=== PATIENT | female | born 1995 | race American Indian/Alaskan Native ===

== ENCOUNTER 2017-02-17 00:11 | Emergency (ER) | payer SELFPAY ==
[2017-02-17 01:05] VITALS: BP 153/101
[2017-02-17] MEDS ORDERED: MOTRIN PO ONE (04:46)
[2017-02-17] MEDS ORDERED: BOOSTRIX IM ONE (04:46)
[2017-02-17] MEDS ORDERED: NORCO 5/325 PO ONE (04:46)
[2017-02-17] MEDS ORDERED: XYLOCAINE TOPICAL 2% TP ONE (04:46)
[2017-02-17] MEDS ORDERED: ZOFRAN ODT PO ONE (04:47)
[2017-02-17] MEDS ORDERED: XYLOCAINE TOPICAL 2% ONE (05:04)
--- NOTE | 2017-02-17 05:06 | Emergency Department Report ---
ED Lower Extremity HPI - General Chief Complaint: Extremity Injury, Lower Stated Complaint: LEFT FOOT TOE NAIL OFF Time Seen by Provider: 02/17/17 04:37 Source: patient Mode of arrival: Ambulatory Limitations: No Limitations - History of Present Illness Initial Comments: 22-year-old female past medical history none presents with complaint of injuring her left great toe toenail. Patient states that while climbing into bed she accidentally grazed the blanket and her toenail detached and flipped upward. Patient experienced immediate pain, denies any other injuries. Left great toe toenail visibly detached from nailbed and pointed upward. Small attachment at top of the nail fold. Complaint: foot injury Onset/Timin -: hour(s) Injury: Toes: Left Type of Injury: other (grazed the bedding) Place: home Severity: moderate Severity scale (0 -10): 4 Improves With: nothing Worsens With: movement, palpation Associated Symptoms: ambulatory - Related Data Home Medications Medication Instructions Recorded Confirmed Last Taken Enoxaparin [Lovenox] 70 mg SUB-Q Q12HR 11/21/14 02/24/15 11/21/14 06:00 1 injection Vit#96/Ferrous Fum/FA 1 tab PO DAILY 11/21/14 02/24/15 11/21/14 06:00 [ Tablet] Previous Rx's Medication Instructions Recorded Last Taken Type NIFEdipine*For Tocolysis only* 10 mg PO Q6HR #30 capsule 11/22/14 Unknown Rx [PROCARDIA] Acetaminophen [Acetaminophen TAB] 650 mg PO Q4H PRN #30 tablet 02/25/15 Unknown Rx Ferrous Sulfate [Feosol 325 MG tab] 325 mg PO BID #60 tablet 02/25/15 Unknown Rx HYDROcodone/APAP 5-325 [[place] 2 each PO Q6H PRN #20 tablet 02/25/15 Unknown Rx 5-325 mg TAB] Vit-Fe Fumar-FA [ 1 each PO QDAY #30 tablet 02/25/15 Unknown Rx Vitamin] Acetaminophen/Codeine [Tylenol 1 tab PO Q6H PRN #5 tab 02/17/17 Unknown Rx /Codeine # 3 tab] Ibuprofen [Motrin] 800 mg PO Q8HR PRN #25 tablet 02/17/17 Unknown Rx Sulfamethoxazole/Trimethoprim 1 each PO BID #14 tablet 02/17/17 Unknown Rx [Bactrim DS TAB] Allergies Allergy/AdvReac Type Severity Reaction Status Date / Time No Known Allergies Allergy Verified 02/22/15 19:19 ED Review of Systems ROS: Stated complaint: LEFT FOOT TOE NAIL OFF Other details as noted in HPI Constitutional: denies: chills, fever Eyes: denies: eye pain, eye discharge, vision change ENT: denies: ear pain, throat pain Respiratory: denies: cough, shortness of breath, wheezing Cardiovascular: denies: chest pain, palpitations Endocrine: no symptoms reported Gastrointestinal: denies: abdominal pain, nausea, diarrhea Genitourinary: denies: urgency, dysuria, discharge Musculoskeletal: denies: back pain, joint swelling, arthralgia Skin: denies: rash, lesions Neurological: denies: headache, weakness, paresthesias Psychiatric: denies: anxiety, depression Hematological/Lymphatic: denies: easy bleeding, easy bruising ED Past Medical Hx - Past Medical History Hx Hypertension: No Hx Congestive Heart Failure: No Hx Diabetes: No Hx Deep Vein Thrombosis: Yes (current) Hx Pulmonary Embolism: Yes Hx Renal Disease: No Hx Sickle Cell Disease: No Hx Seizures: No Hx Asthma: No Hx COPD: No Hx HIV: No - Social History Smoking Status: Never Smoker - Medications Home Medications: Home Medications Medication Instructions Recorded Confirmed Last Taken Type Enoxaparin [Lovenox] 70 mg SUB-Q Q12HR 11/21/14 02/24/15 11/21/14 06:00 History 1 injection Vit#96/Ferrous Fum/FA 1 tab PO DAILY 11/21/14 02/24/15 11/21/14 06:00 History [ Tablet] NIFEdipine*For Tocolysis only* 10 mg PO Q6HR #30 capsule 11/22/14 02/24/15 Unknown Rx [PROCARDIA] Acetaminophen [Acetaminophen TAB] 650 mg PO Q4H PRN #30 tablet 02/25/15 Unknown Rx Ferrous Sulfate [Feosol 325 MG tab] 325 mg PO BID #60 tablet 02/25/15 Unknown Rx HYDROcodone/APAP 5-325 [[place] 2 each PO Q6H PRN #20 tablet 02/25/15 Unknown Rx 5-325 mg TAB] Vit-Fe Fumar-FA [ 1 each PO QDAY #30 tablet 02/25/15 Unknown Rx Vitamin] Acetaminophen/Codeine [Tylenol 1 tab PO Q6H PRN #5 tab 02/17/17 Unknown Rx /Codeine # 3 tab] Ibuprofen [Motrin] 800 mg PO Q8HR PRN #25 tablet 02/17/17 Unknown Rx Sulfamethoxazole/Trimethoprim 1 each PO BID #14 tablet 02/17/17 Unknown Rx [Bactrim DS TAB] ED Physical Exam - General Limitations: No Limitations General appearance: alert, in no apparent distress - Head Head exam: Present: atraumatic, normocephalic - Eye Eye exam: Present: normal appearance, PERRL, EOMI - ENT ENT exam: Present: mucous membranes moist - Neck Neck exam: Present: normal inspection - Respiratory Respiratory exam: Present: normal lung sounds bilaterally. Absent: respiratory distress - Cardiovascular Cardiovascular Exam: Present: regular rate, normal rhythm. Absent: systolic murmur, diastolic murmur, rubs, gallop - GI/Abdominal GI/Abdominal exam: Present: soft, normal bowel sounds - Extremities Exam Extremities exam: Present: normal inspection - Expanded Lower Extremity Exam Left Ankle exam: Present: normal inspection, full ROM Foot/Toe exam: Present: nail avulsion (visible lift/detachment of left great toenail, still partially attached at top of nail fold. Nail bed appears intact on inspection) 1 - Site of injury is here - Back Exam Back exam: Present: normal inspection - Neurological Exam Neurological exam: Present: alert, oriented X3 - Psychiatric Psychiatric exam: Present: normal affect, normal mood - Skin Skin exam: Present: warm, dry, intact, normal color. Absent: rash ED Course Vital Signs 02/17/17 02/17/17 01:02 05:15 Temperature 98.0 F Pulse Rate 80 Respiratory 17 18 Rate Blood Pressure 153/101 O2 Sat by Pulse 99 Oximetry - Laceration /Wound Repair Left Distal Toe Wound Location: lower extremity (left great toenail) Wound's Depth, Shape: nail-avulsed Wound Explored: clean Irrigated w/ Saline (ccs): 1,000 Betadine Prep?: Yes Anesthesia: 1% Lidocaine Volume Anesthetic (ccs): 3 Wound Debrided: moderate (I excised as much of a protruding nail as possible, patient did not tolerate pain well despite use of multiple forms of local anesthesia) Sterile Dressing Applied?: Yes (Xeroform gauze placed over nail bed with dry gauze wrap and a gauze finger ) ED Lower Extremity MDM - Medical Decision Making A/P: Left great toenail avulsion 1-nail bed appeared intact on exam, I removed protruding aspect of nail 2-empiric course of antibiotics as entire nail bed is exposed. I irrigated the wound with mix of water and iodine 3-Xeroform gauze placed him, I educated the patient on acute wound care 4-emphasized to the patient the importance of follow-up with podiatry, patient stated that she would make an appointment Critical care attestation.: If time is entered above; I have spent that time in minutes in the direct care of this critically ill patient, excluding procedure time. ED Disposition Clinical Impression: Injury of toenail of left foot Qualifiers: Encounter type: initial encounter Qualified Code(s): S99.922A - Unspecified injury of left foot, initial encounter Disposition: TO HOME OR SELFCARE Is pt being admited?: No Does the pt Need Aspirin: No Condition: Stable Instructions: Subungual Hematoma (ED), Toenail/Fingernail Removal (ED), Acute Wound Care (ED) Prescriptions: Acetaminophen/Codeine [Tylenol /Codeine # 3 tab] 1 tab PO Q6H PRN #5 tab PRN Reason: Pain Ibuprofen [Motrin] 800 mg PO Q8HR PRN #25 tablet PRN Reason: Pain Sulfamethoxazole/Trimethoprim [Bactrim DS TAB] 1 each PO BID #14 tablet Referrals: SANGEETA SORIANO DPM [Staff Physician] - 3-5 Days Forms: Accompanied Note, Work/School Release Form(ED) Time of Disposition: 07:03
== END 2017-02-17 07:10 | disposition home or self-care (01) ==
LOC: ED 00:11
DX: S91.202A Unspecified open wound of left great toe with damage to nail, initial encounter (principal); X58.XXXA Exposure to other specified factors, initial encounter; Y93.89 Activity, other specified; Y92.89 Other specified places as the place of occurrence of the external cause; Y99.8 Other external cause status
CPT/HCPCS: 90471; 90715; Q0162

== ENCOUNTER 2017-08-14 11:36 | Emergency (ER) | payer MEDICAID ==
[2017-08-14 12:08] VITALS: BP 120/74
[2017-08-14] MEDS ORDERED: ASPIRIN PO ONE (12:08)
[2017-08-14] MEDS ORDERED: ASPIRIN ONE (12:10)
== END 2017-08-14 23:39 | disposition left against medical advice (07) ==
LOC: ED 11:36
DX: R07.9 Chest pain, unspecified (principal); Z53.21 Procedure and treatment not carried out due to patient leaving prior to being seen by health care provider
CPT/HCPCS: 93005; 93010

== ENCOUNTER 2018-04-01 09:53 | Emergency (ER) | payer SELFPAY ==
[2018-04-01] MEDS ORDERED: BENTYL IM ONE (11:35)
[2018-04-01] MEDS ORDERED: ZOFRAN ODT PO ONE (11:35)
--- NOTE | 2018-04-01 11:44 | Emergency Department Report ---
ED General Adult HPI - General Chief complaint: Abdominal Pain Stated complaint: PINK EYE/NAUSEA Time Seen by Provider: 04/01/18 11:21 Source: patient Mode of arrival: Ambulatory Limitations: No Limitations - History of Present Illness Initial comments: Patient is 23-year-old black female who is presenting with 2 medical problems. Medical problem #1 is that the patient has some irritation to the right eye for the past day. Patient does wear contact lenses. Patient had some discharged to the this morning. Patient tried using some old eyedrops that she had has not had any improvement. Patient also is complaining of some left lower quadrant discomfort with nausea vomiting and diarrhea. Patient states she was holding a baby several days ago had some loose stools. Patient states that she believes she test stool but did not wash her hands. Patient denies any fevers chills at this time. Patient states there is crampy abdominal discomfort as a 7 out of 10 in severity. - Related Data Home Medications Medication Instructions Recorded Confirmed Last Taken Enoxaparin [Lovenox] 70 mg SUB-Q Q12HR 11/21/14 02/24/15 11/21/14 06:00 1 injection Vits96/Iron Fum/Folic 1 tab PO DAILY 11/21/14 02/24/15 11/21/14 06:00 [ Tablet] Previous Rx's Medication Instructions Recorded Last Taken Type NIFEdipine*For Tocolysis only* 10 mg PO Q6HR #30 capsule 11/22/14 Unknown Rx [PROCARDIA] Acetaminophen [Acetaminophen TAB] 650 mg PO Q4H PRN #30 tablet 02/25/15 Unknown Rx Ferrous Sulfate [Feosol 325 MG tab] 325 mg PO BID #60 tablet 02/25/15 Unknown Rx HYDROcodone/APAP 5-325 [[place] 2 each PO Q6H PRN #20 tablet 02/25/15 Unknown Rx 5-325 mg TAB] Vit-Fe Fumar-FA [ 1 each PO QDAY #30 tablet 02/25/15 Unknown Rx Vitamin] Acetaminophen/Codeine [Tylenol 1 tab PO Q6H PRN #5 tab 02/17/17 Unknown Rx /Codeine # 3 tab] Ibuprofen [Motrin] 800 mg PO Q8HR PRN #25 tablet 02/17/17 Unknown Rx Sulfamethoxazole/Trimethoprim 1 each PO BID #14 tablet 02/17/17 Unknown Rx [Bactrim DS TAB] Dicyclomine [Bentyl] 10 mg PO QID #15 capsule 04/01/18 Unknown Rx Gentamicin 0.3% Ophth Soln 2 drops OP Q4H #1 bottle 04/01/18 Unknown Rx Ibuprofen [Motrin] 600 mg PO Q8H PRN #20 tablet 04/01/18 Unknown Rx Ondansetron [Zofran Odt] 4 mg PO Q8HR PRN #10 tab.rapdis 04/01/18 Unknown Rx traMADol [Ultram] 50 mg PO Q6HR PRN #10 tablet 04/01/18 Unknown Rx Allergies Allergy/AdvReac Type Severity Reaction Status Date / Time No Known Allergies Allergy Verified 08/14/17 12:02 ED Review of Systems ROS: Stated complaint: PINK EYE/NAUSEA Other details as noted in HPI Comment: All other systems reviewed and negative ED Past Medical Hx - Past Medical History Previous Medical History?: Yes Hx Hypertension: No Hx Congestive Heart Failure: No Hx Diabetes: No Hx Deep Vein Thrombosis: Yes Hx Pulmonary Embolism: Yes Hx Renal Disease: No Hx Sickle Cell Disease: No Hx Seizures: No Hx Asthma: No Hx COPD: No Hx HIV: No - Surgical History Past Surgical History?: No - Social History Smoking Status: Current Every Day Smoker Substance Use Type: None - Medications Home Medications: Home Medications Medication Instructions Recorded Confirmed Last Taken Type Enoxaparin [Lovenox] 70 mg SUB-Q Q12HR 11/21/14 02/24/15 11/21/14 06:00 History 1 injection Vits96/Iron Fum/Folic 1 tab PO DAILY 11/21/14 02/24/15 11/21/14 06:00 History [ Tablet] NIFEdipine*For Tocolysis only* 10 mg PO Q6HR #30 capsule 11/22/14 02/24/15 Unknown Rx [PROCARDIA] Acetaminophen [Acetaminophen TAB] 650 mg PO Q4H PRN #30 tablet 02/25/15 Unknown Rx Ferrous Sulfate [Feosol 325 MG tab] 325 mg PO BID #60 tablet 02/25/15 Unknown Rx HYDROcodone/APAP 5-325 [[place] 2 each PO Q6H PRN #20 tablet 02/25/15 Unknown Rx 5-325 mg TAB] Vit-Fe Fumar-FA [ 1 each PO QDAY #30 tablet 02/25/15 Unknown Rx Vitamin] Acetaminophen/Codeine [Tylenol 1 tab PO Q6H PRN #5 tab 02/17/17 Unknown Rx /Codeine # 3 tab] Ibuprofen [Motrin] 800 mg PO Q8HR PRN #25 tablet 02/17/17 Unknown Rx Sulfamethoxazole/Trimethoprim 1 each PO BID #14 tablet 02/17/17 Unknown Rx [Bactrim DS TAB] Dicyclomine [Bentyl] 10 mg PO QID #15 capsule 04/01/18 Unknown Rx Gentamicin 0.3% Ophth Soln 2 drops OP Q4H #1 bottle 04/01/18 Unknown Rx Ibuprofen [Motrin] 600 mg PO Q8H PRN #20 tablet 04/01/18 Unknown Rx Ondansetron [Zofran Odt] 4 mg PO Q8HR PRN #10 tab.rapdis 04/01/18 Unknown Rx traMADol [Ultram] 50 mg PO Q6HR PRN #10 tablet 04/01/18 Unknown Rx ED Physical Exam - General Limitations: No Limitations General appearance: alert, in no apparent distress - Head Head exam: Present: atraumatic, normocephalic - Eye Eye exam: Present: conjunctival injection (right eye). Absent: normal appearance - ENT ENT exam: Present: mucous membranes moist - Neck Neck exam: Present: normal inspection - Respiratory Respiratory exam: Present: normal lung sounds bilaterally. Absent: respiratory distress, wheezes, rales, rhonchi - Cardiovascular Cardiovascular Exam: Present: regular rate, normal rhythm. Absent: systolic murmur, diastolic murmur, rubs, gallop - GI/Abdominal GI/Abdominal exam: Present: soft, normal bowel sounds. Absent: distended, tenderness, guarding, rebound, rigid - Extremities Exam Extremities exam: Present: normal inspection - Back Exam Back exam: Present: normal inspection - Neurological Exam Neurological exam: Present: alert, oriented X3 - Psychiatric Psychiatric exam: Present: normal affect, normal mood - Skin Skin exam: Present: warm, dry, intact, normal color. Absent: rash ED Course Vital Signs 04/01/18 10:19 Temperature 98.7 F Pulse Rate 110 H Respiratory 20 Rate Blood Pressure 117/73 O2 Sat by Pulse 98 Oximetry ED Medical Decision Making - Medical Decision Making She'll be treated for conjunctivitis for bacterial source. Patient also given meds for symptomatic relief for a viral gastroenteritis. Patient seems to [place]. And is in no acute distress. Her abdomen is soft. Patient be discharged home at this time. Critical care attestation.: If time is entered above; I have spent that time in minutes in the direct care of this critically ill patient, excluding procedure time. ED Disposition Clinical Impression: Bacterial conjunctivitis, Viral gastroenteritis Disposition: DC-01 TO HOME OR SELFCARE Is pt being admited?: No Does the pt Need Aspirin: No Condition: Stable Instructions: Abdominal Pain (ED), Gastroenteritis (ED), Conjunctivitis (ED) Referrals: PRIMARY CARE, [Primary Care Provider] - 3-5 Days Time of Disposition: 11:45
[2018-04-01 12:04] VITALS: BP 118/62
== END 2018-04-01 12:02 | disposition home or self-care (01) ==
LOC: ED 09:53
DX: H10.9 Unspecified conjunctivitis (principal); A08.4 Viral intestinal infection, unspecified; F17.200 Nicotine dependence, unspecified, uncomplicated; Z86.718 Personal history of other venous thrombosis and embolism; Z86.711 Personal history of pulmonary embolism
CPT/HCPCS: 96372; 99282; J0500; Q0162